=== PATIENT | female | born 1955 | race Caucasian/White ===

== ENCOUNTER → 2025-03-09 08:13 | Outpatient (REF) | payer MEDICARE, OTHER, SELFPAY | LOC: HWRCS 08:13 | PROVIDERS: ATTENDING PHYSICIAN Internal Medicine Cardiovascular Disease; FAMILY PHYSICIAN Internal Medicine | DX: I42.2 Other hypertrophic cardiomyopathy (principal) | CPT/HCPCS: 93306 ==